=== PATIENT | male | born 1990 | race Two or more races ===

== ENCOUNTER 2016-10-03 23:57 | Emergency (ER) | payer SELFPAY ==
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
[2016-10-04 06:51] VITALS: BP 123/69; PULSE 65; RESP 17; TEMP 98.1; O2SAT 99
== END 2016-10-04 06:30 | disposition home or self-care (01) ==
LOC: H.ER 23:57
DX: F32.9 Major depressive disorder, single episode, unspecified (principal)